=== PATIENT | male | born 1995 | race Caucasian/White ===

== ENCOUNTER 2017-02-10 20:29 | Inpatient (IN) | payer OTHER ==
[~2017-02-10] VITALS: Ht 177.8 cm; Wt 74.5 kg
[2017-02-10 20:40] VITALS: BP 139/69
[2017-02-10 21:19] LABS: BASO % 0.6 % (0.0-1.0); EOS # 0.1 10*3/uL (0.0-0.4); EOS % 1.6 % (1.0-4.0); LYMPH # 2.3 10*3/uL (1.3-4.4); MEAN CELL VOLUME 87.8 fl (80.0-94.0); MEAN CORPUSCULAR HGB 29.9 pg (27.0-31.0); MEAN CORPUSCULAR HGB CONC 34.1 g/dl (33.0-37.0); MONO # 0.6 10*3/uL (0.1-1.0); MONO % 8.1 % (3.0-9.0); NEUT # 3.9 10*3/uL (2.3-7.9); NEUT % 56.6 % (47.0-73.0); PLATELET COUNT AUTOMATED 281 10*3/uL (130-400); RED BLOOD COUNT 5.01 10*6/uL (4.50-5.90); WHITE BLOOD COUNT 6.9 10*3/uL (4.8-10.8)
[2017-02-10 21:34] LABS: ALBUMIN 4.4 gm/dl (3.1-4.5); ALKALINE PHOSPHATASE 87 U/L (45-117); BILIRUBIN, TOTAL 0.8 mg/dl (0.2-1.0); BUN 12 mg/dl (7-24); CARBON DIOXIDE 35 mmol/L (21-32); CHLORIDE 102 mmol/L (98-107); EST GLOM FILT AFRICAN AMERICAN > 60 ml/min; GLUCOSE 91 mg/dL (65-99); POTASSIUM 4.2 mmol/L (3.5-5.1); SGOT/AST 83 IU/L (3-35); SGPT/ALT 260 U/L (12-78); SODIUM 142 mmol/L (136-145)
[2017-02-10 21:48] LABS: INTERNATIONAL NORM RATIO 1.3 (2.0-3.5); PROTHROMBIN TIME 13.5 SECONDS (9.0-12.4)
[2017-02-10 21:56] VITALS: BP 126/63
[2017-02-10 22:18] VITALS: BP 136/76
[2017-02-10 22:38] VITALS: BP 136/76
[2017-02-11] VITALS: BP 161/40
[2017-02-11 00:30] VITALS: BP 130/60
[2017-02-11 04:53] LABS: BILIRUBIN NEGATIVE (NEGATIVE); BLOOD NEGATIVE (NEGATIVE); CLARITY CLEAR (CLEAR); COLOR YELLOW (YELLOW); GLUCOSE NEGATIVE (NEGATIVE); KETONE NEGATIVE (NEGATIVE); LEUKO ESTERASE NEGATIVE (NEGATIVE); NITRITE NEGATIVE (NEGATIVE); PROTEIN NEGATIVE (NEGATIVE); SPECIFIC GRAVITY 1.025 (1.005-1.030); UROBILINOGEN 0.2 E.U./dl (0.2-1.0)
[2017-02-11 04:55] LABS: URINE REFLEX COMMENT NO (NO); WBC 0-2 wbc/hpf (0-5)
[2017-02-11 05:02] LABS: URINE AMPHETAMINES < 1000 (1000ng/ml); URINE BARBITURATES < 200 (200ng/ml); URINE COCAINE < 300 (300ng/ml)
[2017-02-11 08:00] VITALS: BP 120/84
[2017-02-11 12:00] VITALS: BP 104/54
[2017-02-11 16:00] VITALS: BP 119/54
[2017-02-11 20:00] VITALS: BP 148/65
[2017-02-12] VITALS: BP 139/54
[2017-02-12 08:00] VITALS: BP 138/77
[2017-02-12 12:00] VITALS: BP 118/60
[2017-02-12 16:00] VITALS: BP 152/60
[2017-02-12 20:00] VITALS: BP 134/62
[2017-02-13] VITALS: BP 121/54
[2017-02-13 08:00] VITALS: BP 132/76
[2017-02-13 10:24] LABS: BASO % 0.5 % (0.0-1.0); EOS # 0.1 10*3/uL (0.0-0.4); EOS % 2.2 % (1.0-4.0); HEMOGLOBIN 13.5 g/dl (14.0-18.0); LYMPH # 1.8 10*3/uL (1.3-4.4); LYMPH % 28.2 % (27.0-41.0); MEAN CELL VOLUME 90.1 fl (80.0-94.0); MEAN CORPUSCULAR HGB 30.4 pg (27.0-31.0); MEAN CORPUSCULAR HGB CONC 33.8 g/dl (33.0-37.0); MEAN PLATELET VOLUME 9.2 fl (9.6-12.3); MONO # 0.6 10*3/uL (0.1-1.0); MONO % 9.1 % (3.0-9.0); NEUT # 3.9 10*3/uL (2.3-7.9); NEUT % 59.7 % (47.0-73.0); PLATELET COUNT AUTOMATED 198 10*3/uL (130-400); RED BLOOD COUNT 4.44 10*6/uL (4.50-5.90); RED CELL DISTRI WIDTH 12.9 % (0-14.5); WHITE BLOOD COUNT 6.5 10*3/uL (4.8-10.8)
[2017-02-13 10:36] LABS: EST GLOM FILT AFRICAN AMERICAN > 60 ml/min
[2017-02-13 12:00] VITALS: BP 130/80
[2017-02-13 16:00] VITALS: BP 122/56
[2017-02-13 20:00] VITALS: BP 136/63
[2017-02-14] VITALS: BP 119/60
[2017-02-14 04:00] VITALS: BP 120/60
[2017-02-14 08:00] VITALS: BP 123/60
[2017-02-14 12:00] VITALS: BP 121/57
[2017-02-14] MEDS ORDERED: CARBIDOPA/LEVOD1 TA1 PO (13:44)
[2017-02-14] MEDS ORDERED: ATARAX,VISTARIL50 MG PO (13:44)
[2017-02-14] MEDS ORDERED: ZOFRAN 4 MG ED2 TAB PO (13:44)
[2017-02-14 16:00] VITALS: BP 128/58
[2017-02-14 20:00] VITALS: BP 128/52; BP 128/53
[2017-02-15] VITALS: BP 128/52
[2017-02-15 04:00] VITALS: BP 122/50
[2017-02-15 08:00] VITALS: BP 125/60
== END 2017-02-15 12:11 | disposition home or self-care (01) | DRG 897 ==
LOC: ED 20:29 → 4E 21:20 → EDHOLD 21:20 → 4E 21:39
PROVIDERS: Family Medicine; Internal Medicine; Physician Assistant
DX: F11.23 Opioid dependence with withdrawal (principal); B18.2 Chronic viral hepatitis C; Z71.6 Tobacco abuse counseling; F17.200 Nicotine dependence, unspecified, uncomplicated; R06.89 Other abnormalities of breathing; R74.0 Nonspecific elevation of levels of transaminase and lactic acid dehydrogenase [LDH]

== ENCOUNTER 2018-04-26 21:00 | Inpatient (IN) | payer OTHER ==
[~2018-04-26] VITALS: Ht 176.5 cm; Wt 69.0 kg
[~2018-04-26 21:00] MED LIST: ATARAX,VISTARIL50 MG PO; CARBIDOPA/LEVOD1 TA1 PO; ZOFRAN 4 MG ED2 TAB PO
[2018-04-26 21:02] VITALS: BP 128/66
[2018-04-26 21:39] LABS: BASO # 0.1 10*3/uL (0.0-0.1); BASO % 1.1 % (0.0-1.0); EOS # 0.1 10*3/uL (0.0-0.4); EOS % 2.5 % (1.0-4.0); HEMATOCRIT 38.6 % (42.0-52.0); LYMPH # 2.2 10*3/uL (1.3-4.4); LYMPH % 47.3 % (27.0-41.0); MEAN CELL VOLUME 86.9 fl (80.0-94.0); MEAN CORPUSCULAR HGB 29.3 pg (27.0-31.0); MEAN CORPUSCULAR HGB CONC 33.7 g/dl (33.0-37.0); MONO # 0.8 10*3/uL (0.1-1.0); MONO % 16.8 % (3.0-9.0); NEUT # 1.5 10*3/uL (2.3-7.9); NEUT % 32.1 % (47.0-73.0); PLATELET COUNT AUTOMATED 187 10*3/uL (130-400); RED BLOOD COUNT 4.44 10*6/uL (4.50-5.90); RED CELL DISTRI WIDTH 13.4 % (0-14.5); WHITE BLOOD COUNT 4.7 10*3/uL (4.8-10.8)
[2018-04-26 21:48] LABS: URINE AMPHETAMINES < 1000 (1000ng/ml); URINE BARBITURATES < 200 (200ng/ml); URINE BENZODIAZEPINES < 200 (200ng/ml); URINE CANNABINOIDS (THC) < 50 (50ng/ml); URINE COCAINE < 300 (300ng/ml); URINE METHADONE < 300 (300ng/ml); URINE OPIATES < 300 (300ng/ml)
[2018-04-26 21:50] LABS: BILIRUBIN NEGATIVE (NEGATIVE); BLOOD NEGATIVE (NEGATIVE); CLARITY CLEAR (CLEAR); COLOR YELLOW (YELLOW); GLUCOSE NEGATIVE (NEGATIVE); KETONE TRACE (NEGATIVE); LEUKO ESTERASE NEGATIVE (NEGATIVE); NITRITE NEGATIVE (NEGATIVE); SPECIFIC GRAVITY >= 1.030 (1.005-1.030)
[2018-04-26 21:53] LABS: URINE PHENCYCLIDINE < 25 (25ng/ml)
[2018-04-26 22:02] LABS: ALBUMIN 4.1 gm/dl (3.1-4.5); ALKALINE PHOSPHATASE 79 U/L (45-117); BUN 13 mg/dl (7-24); CHLORIDE 108 mmol/L (98-107); CREATININE 0.92 mg/dL (0.70-1.30); POTASSIUM 4.1 mmol/L (3.5-5.1); SGOT/AST 25 IU/L (3-35); SGPT/ALT 27 U/L (12-78); SODIUM 143 mmol/L (136-145); TOTAL PROTEIN 8.3 gm/dL (6.4-8.2)
[2018-04-26 22:04] LABS: CALCIUM OXALATE CRYSTALS TRACE; MUCOUS 1+; RBC 0-2 rbc/hpf (0-2); WBC 0-2 wbc/hpf (0-5)
[2018-04-26 22:05] LABS: ETHYL ALCOHOL < 3.0 mg/dl (<3)
[2018-04-26 22:10] VITALS: BP 148/83
[2018-04-27] VITALS: BP 133/74
[2018-04-27 05:00] VITALS: BP 131/64
[2018-04-27 08:00] VITALS: BP 128/72
[2018-04-27 16:00] VITALS: BP 109/58
[2018-04-27 20:05] VITALS: BP 132/74
[2018-04-28 08:00] VITALS: BP 127/51
[2018-04-28 12:00] VITALS: BP 114/56
[2018-04-28 16:00] VITALS: BP 123/55
[2018-04-28 20:00] VITALS: BP 128/70
[2018-04-29] VITALS: BP 127/63
[2018-04-29 08:00] VITALS: BP 110/61
[2018-04-29 12:00] VITALS: BP 130/67
[2018-04-29 16:00] VITALS: BP 111/52
[2018-04-29 20:00] VITALS: BP 113/60
[2018-04-30] VITALS: BP 112/48
[2018-04-30 08:00] VITALS: BP 117/62
[2018-04-30] MEDS ORDERED: Zofran4 MG SL (10:33)
[2018-04-30 11:23] LABS: BASO # 0.1 10*3/uL (0.0-0.1); BASO % 0.7 % (0.0-1.0); EOS # 0.1 10*3/uL (0.0-0.4); EOS % 0.7 % (1.0-4.0); HEMATOCRIT 43.7 % (42.0-52.0); HEMOGLOBIN 14.6 g/dl (14.0-18.0); LYMPH # 2.1 10*3/uL (1.3-4.4); LYMPH % 30.4 % (27.0-41.0); MEAN CELL VOLUME 87.8 fl (80.0-94.0); MEAN CORPUSCULAR HGB 29.3 pg (27.0-31.0); MEAN CORPUSCULAR HGB CONC 33.4 g/dl (33.0-37.0); MEAN PLATELET VOLUME 9.2 fl (9.6-12.3); MONO # 0.5 10*3/uL (0.1-1.0); MONO % 7.5 % (3.0-9.0); NEUT # 4.1 10*3/uL (2.3-7.9); NEUT % 60.6 % (47.0-73.0); PLATELET COUNT AUTOMATED 247 10*3/uL (130-400); RED BLOOD COUNT 4.98 10*6/uL (4.50-5.90); RED CELL DISTRI WIDTH 13.2 % (0-14.5); WHITE BLOOD COUNT 6.8 10*3/uL (4.8-10.8)
[2018-04-30 11:52] LABS: CREATININE 1.04 mg/dL (0.70-1.30)
== END 2018-04-30 12:12 | disposition home or self-care (01) | DRG 897 ==
LOC: ED 21:00 → EDHOLD 21:18 → 4E 21:18
PROVIDERS: Emergency Medicine Emergency Medical Services; Nurse Practitioner Family
DX: F11.23 Opioid dependence with withdrawal (principal); F11.29 Opioid dependence with unspecified opioid-induced disorder; E87.8 Other disorders of electrolyte and fluid balance, not elsewhere classified; D72.819 Decreased white blood cell count, unspecified; F41.9 Anxiety disorder, unspecified; G25.81 Restless legs syndrome; R03.0 Elevated blood-pressure reading, without diagnosis of hypertension; R80.9 Proteinuria, unspecified; R82.99 Other abnormal findings in urine; R82.4 Acetonuria; B19.20 Unspecified viral hepatitis C without hepatic coma; D64.9 Anemia, unspecified; F17.210 Nicotine dependence, cigarettes, uncomplicated; Z83.3 Family history of diabetes mellitus; Z71.6 Tobacco abuse counseling

== ENCOUNTER 2020-10-09 11:57 | Inpatient (IN) | payer OTHER ==
[~2020-10-09] VITALS: Ht 177.8 cm; Wt 65.8 kg
[~2020-10-09 11:57] MED LIST changes: +Zofran4 MG SL
[2020-10-09 12:00] VITALS: BP 114/71
[2020-10-09 14:06] LABS: BASO # 0.1 10*3/uL (0.0-0.1); EOS # 0.2 10*3/uL (0.0-0.4); EOS % 2.9 % (1.0-4.0); HEMATOCRIT 41.8 % (42.0-52.0); LYMPH # 2.5 10*3/uL (1.3-4.4); MEAN CELL VOLUME 86.5 fl (80.0-94.0); MEAN CORPUSCULAR HGB 28.8 pg (27.0-31.0); MEAN CORPUSCULAR HGB CONC 33.3 g/dl (33.0-37.0); MEAN PLATELET VOLUME 8.7 fl (9.6-12.3); MONO # 0.5 10*3/uL (0.1-1.0); MONO % 8.7 % (3.0-9.0); NEUT # 2.6 10*3/uL (2.3-7.9); PLATELET COUNT AUTOMATED 357 10*3/uL (130-400); RED BLOOD COUNT 4.83 10*6/uL (4.50-5.90); RED CELL DISTRI WIDTH 12.6 % (0-14.5); WHITE BLOOD COUNT 5.8 10*3/uL (4.8-10.8)
--- NOTE | 2020-10-09 14:15 | NUR ---
MSADMTime: N A 25 year old MALE admitted to under services of SAVANNAH VOGEL DO. Pt. arrived via ambulatory from [place]. Chief complaint: WITHDRAWAL. CAMRYN GALVAN
[2020-10-09 14:16] LABS: INTERNATIONAL NORM RATIO 1.1 (2.0-3.5)
[2020-10-09 14:18] LABS: ALKALINE PHOSPHATASE 78 U/L (45-117); BUN 11 mg/dl (7-24); CHLORIDE 105 mmol/L (98-107); CREATININE 0.84 mg/dL (0.70-1.30); POTASSIUM 4.4 mmol/L (3.5-5.1); SGOT/AST 14 IU/L (3-35); SGPT/ALT 17 U/L (12-78); SODIUM 138 mmol/L (136-145); TOTAL PROTEIN 7.8 gm/dL (6.4-8.2)
[2020-10-09 14:21] LABS: ETHYL ALCOHOL < 3.0 mg/dl (<3)
[2020-10-09 14:25] LABS: BILIRUBIN Negative (Negative); BLOOD Negative (Negative); CLARITY Clear (Clear); COLOR Yellow (Yellow); GLUCOSE Negative (Negative); KETONE Negative (Negative); LEUKO ESTERASE Negative (Negative); NITRITE Negative (Negative); PH 6.5 (4.5-8.0); UROBILINOGEN 0.2 E.U./dl (0.0-1.0)
--- NOTE | 2020-10-09 14:30 | NUR ---
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 WILL MONITOR.
[2020-10-09 14:34] LABS: URINE AMPHETAMINES > 1000 (1000ng/ml); URINE BARBITURATES < 200 (200ng/ml); URINE BENZODIAZEPINES < 200 (200ng/ml); URINE CANNABINOIDS (THC) < 50 (50ng/ml); URINE COCAINE > 300 (300ng/ml); URINE METHADONE < 300 (300ng/ml); URINE OPIATES > 300 (300ng/ml)
[2020-10-09 14:36] LABS: URINE PHENCYCLIDINE < 25 (25ng/ml)
[2020-10-09 14:38] LABS: WBC 0-2 wbc/hpf (0-5)
--- NOTE | 2020-10-09 15:02 | NUR ---
PATIENT MEETS [facility]. CINA=15,CIWA=19. PATIENT IS WANTING TO FOLLOW UP WITH [facility] FOR OUTPATIENT TREATMENT FOR HIS AFTERCARE PLAN. 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 CV RN
--- NOTE | 2020-10-09 15:05 | NUR ---
ROBAXIN GIVEN FOR C/O MUSCLE ACHES, REQUIP GIVEN FOR C/O RESTLESS LEGS. WILL MONITOR.
[2020-10-09 16:00] VITALS: BP 126/59
--- NOTE | 2020-10-09 16:10 | NUR ---
REQUIP AND ROBAXIN EFFECTIVE PER PT.
[2020-10-09 20:00] VITALS: BP 112/42
--- NOTE | 2020-10-09 21:19 | NUR ---
PATIENT C/O ABOUT "HURTING" STOMACHE AND BODY CRAMPING. MOTRIN, ROBAXIN, BENTYL GIVEN PER ORDER FOR WITHDRAWL SYMPTOMS. TRAZADONE GIVE FOR INSOMNIA. SEE MAR. PATIENT ALSO NOTED TO HAVE CONGESTION AND DID NOT WANT ANYTHING FOR IT. PATIENT ALSO DID NOT WANT TO TAKE SUBUTEX AND THIS TIME.
--- NOTE | 2020-10-09 22:15 | NUR ---
MOTRIN,ROBAXIN, BENTYL AND TRAZADONE EFFECTIVE FOR WITHDRAWL SYMPTOMS PER PT.
[2020-10-10] VITALS: BP 104/46
--- NOTE | 2020-10-10 01:06 | NUR ---
PATIENT HAD C/O NAUSEA AND INCREASED ANXIETY BUT WHEN VISTARIL AND ZOFRAN TAKEN TO ROOM PATIENT WAS NOT ABLE TO AWAKEN FULLY TO TAKE MEDICATION.
--- NOTE | 2020-10-10 01:54 | NUR ---
24 HR chart check completed.
--- NOTE | 2020-10-10 02:15 | NUR ---
PATIENT APPEARS TO BE SLEEPING EYES CLOSED RESP EASY AND REG.
--- NOTE | 2020-10-10 04:44 | NUR ---
PATIENT IS AWAKE NOW AND TOOK VISTARIL AND ZOFRAN FOR ANXIETY AND NAUSEA ALSO REQUIP , ROBAXN, BENTYL ALL GIVEN FOR MUSCLE ACHES, RESTLESSNESS AND STOMACH CRAMPING. PATIENT FALLING BACK TO SLEEP BUT MOVEMENTS ARE QUICK AND OVER EXAGGERATED.
--- NOTE | 2020-10-10 05:40 | NUR ---
PATIENT STILL NOT FEELING WELL. WITHDRAWL MEDICATIONS NOT WORKING WELL PATIENT STILL HAVING SOME RESTLESSNESS ANXIETY.
--- NOTE | 2020-10-10 06:09 | NUR ---
ASKED PATIENT AT 0444 IF HE WAS GOING TO BE TAKING HIS SUBUTEX AT 6 AM AND HE SAID HE WOULD BUT WHEN THIS TIME CAME PATIENT STILL REFUSING TO TAKE IT SAID "I DON'T WANT TO BE THROWN INTO PREMATURE WITHDRAWL AND I'M FEELING SO SICK RIGHT NOW I JUST CAN'T TAKE IT." CALLED AND NOTIFIED DR. MOCTEZUMA OF THIS. NO NEW ORDERS.
[2020-10-10 08:00] VITALS: BP 108/43
--- NOTE | 2020-10-10 08:00 | NUR ---
PATIENT AWAKENS UP ENTERING ROOM. COMPLAINTS OF NAUSEA VOICED AT THIS TIME. EDUCATION PROVIDED REGARDING PRN MEDICATIONS. NO OTHER STATED COMPLAINTS AT THIS TIME. RESPIRATIONS ARE EASY AND REGULAR ON ROOM AIR. NO S/S OF DISTRESS NOTED. PT S ABLE TO REPOSITION SELF AND IS ENCOURAGED TO DO SO. BED IN LOWEST LOCKED POSITION AND CALL LIGHT WITHIN REACH. WILL CONTINUE TO MONITOR.
[2020-10-10 12:00] VITALS: BP 116/70
--- NOTE | 2020-10-10 12:58 | NUR ---
[facility] STAFF IN TO SEE PATEINT. PATIENT STILL WANTS TO FOLLOW UP WITH [facility] FOR HIS AFTERCARE PLAN. OTNY UP B.A. SCREENER PERFUMER
--- NOTE | 2020-10-10 14:00 | NUR ---
PT STATES HE DOES NOT WANT SUBUTEX.
[2020-10-10 16:00] VITALS: BP 145/71
--- NOTE | 2020-10-10 18:13 | NUR ---
PT COMPLAINS OF NAUSEA, BODY ACHES AND RESTLESSNESS. PRN TYLENOL, ZOFRAN AND REQUIP ADMINISTERED.
[2020-10-10 20:00] VITALS: BP 120/66
--- NOTE | 2020-10-10 20:21 | NUR ---
MEDICATED WITH PRN ROBAXIN FOR MUSCLE SPASMS.
--- NOTE | 2020-10-10 20:21 | NUR ---
PATIENT MEDICATED WITH PRN BENTYL AND VISTARIL FOR CO ABD PAIN AND ANXIETY WILL ASSESS EFFECTIVENESS.
--- NOTE | 2020-10-10 21:55 | NUR ---
24 HR chart check completed.
--- NOTE | 2020-10-10 22:21 | NUR ---
BENTYL AND VISTARIL EFFECTIVE PER PATIENT.
--- NOTE | 2020-10-10 22:26 | NUR ---
ROBAXIN EFFECTIVE PER PATIENT.
--- NOTE | 2020-10-10 23:31 | NUR ---
CHART CHECK COMPLETE.
[2020-10-11] VITALS: BP 117/60
--- NOTE | 2020-10-11 00:02 | NUR ---
ASSUMED CARE OF PATIENT. PATIENT IS AAOX3 RESTING IN BED WITH EASY AND REGULAR RESPERS ON ROOM AIR. ASSESSMENT IS COMPLETE WITH NO S/S OF DISTRESS NOTED A THIS TIME. PATIENT C/O BODY ACHES AND INSOMNIA. PRN TYLENOL, MOTRIN, TRAZADONE GIVEN AT THIS TIME. WILL CONTINUE TO MONITOR, SEE INTERVENTIONS.
[2020-10-11 08:00] VITALS: BP 107/59
--- NOTE | 2020-10-11 08:15 | NUR ---
Scott called with a 2nd request for clinicals. Clinicals faxed to [phone] for reference number [id number]
--- NOTE | 2020-10-11 08:20 | NUR ---
Medicated with requip, robaxin and vistaril for c/o restless legs, muscle aches and anxiety.
--- NOTE | 2020-10-11 09:10 | NUR ---
States prn medications helped somewhat.
--- NOTE | 2020-10-11 11:10 | NUR ---
[facility] STAFF IN TO SEE PATIENT. [facility] STAFF WILL PROVIDE PATIENT WITH APPOINTMENT DATE AND TIME FOR INTENSIVE OUTPATIENT TREATMENT AT A FACILITY CLOSE TO HIS HOME. 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
[2020-10-11 12:00] VITALS: BP 110/61
--- NOTE | 2020-10-11 14:50 | NUR ---
Notified by Suni from [facility] that neither pt nor his belongings were in the room. States that pt left.
--- NOTE | 2020-10-11 14:55 | NUR ---
Notified Rosalie Burks that pt left ama.
== END 2020-10-11 15:11 | disposition left against medical advice (07) | DRG 770 ==
LOC: 5E 11:57
PROVIDERS: Registered Nurse; ADMIT Family Medicine; ATTEND Family Medicine
DX: F11.23 Opioid dependence with withdrawal (principal); F41.9 Anxiety disorder, unspecified; F17.210 Nicotine dependence, cigarettes, uncomplicated; F15.10 Other stimulant abuse, uncomplicated; Z53.29 Procedure and treatment not carried out because of patient's decision for other reasons; F10.939 Alcohol use, unspecified with withdrawal, unspecified; F14.10 Cocaine abuse, uncomplicated; B19.20 Unspecified viral hepatitis C without hepatic coma; Z71.6 Tobacco abuse counseling